=== PATIENT | male | born 2000 | race Caucasian/White ===

== ENCOUNTER 2023-10-18 23:09 | Emergency (ER) | payer BC, OTHER, SELFPAY ==
[2023-10-18 23:21] VITALS: BP 142/80; PULSE 102; RESP 16; TEMP 36.9; O2SAT 97; BMI 22.6
--- NOTE | 2023-10-18 23:58 | PC.NURSE ---
Pt main concern about being in ER is that he feels not well. Pt does not have a PCP, history of depression and anxiety. Pt states that he is not currently on any medications. Last time he tried Prozac and it did not help him. Pt lives locally but does not have a PCP or mental health provider at this time.
[2023-10-19 01:18] LABS: Appearance Urine UA CLEAR; Bilirubin Urine UA NEGATIVE (NEGATIVE); Color Urine UA YELLOW; Glucose Urine UA NEGATIVE (Negative); Ketones Urine UA NEGATIVE (NEGATIVE); Leukocyte Esterase Urine UA NEGATIVE (NEGATIVE); Nitrite Urine UA NEGATIVE (Negative); Occult Blood Urine UA TRACE-INTACT (Negative); Protein Urine UA NEGATIVE (Negative); Urobilinogen Urine UA 0.2 E.U./dL (0.2)
--- NOTE | 2023-10-19 01:19 | ED.WEAKNESS ---
HPI - Weakness General Chief complaint: Weakness Stated complaint: mental health, feels malnourished Time Seen by Provider: 10/19/23 00:56 Source: patient Mode of arrival: Ambulatory History of Present Illness HPI Narrative: Patient comes to the ED tonight because he is concerned he might be malnourished or anemic. He says he spends a lot of time indoors. 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 Not going to school currently. Lives in his parent's house. Because of depression anxiety says he has not eating much lately. He thinks he has had about a 4 lb weight loss in the past couple of months. He feels very fatigued and tired and is worried again about malnutrition. He specifically denies suicidal or homicidal ideation. He does not have a primary care doctor. He does not smoke cigarettes. He does use marijuana occasionally. He denies any other substance use. Patient History Social History Smoking Status: Never smoker Smoking Status: Never smoker Substance Use Type: marijuana Exam Narrative Exam Narrative: GENERAL: Alert, cooperative and in no distress. HEAD: Atraumatic. Normocephalic. EYES: Sclera are clear without icterus. Extraocular movements are full. ENT: No rhinorrhea. NECK: Supple. Full range of motion. CARDIOVASCULAR: Normal rate and rhythm without murmur gallop or rub. RESPIRATORY: Clear to auscultation. Breath sounds equal bilaterally. No wheezes, rales, or rhonchi. GASTROINTESTINAL: Abdomen soft, non-tender, nondistended. EXTREMITIES: No edema, full range of motion. No obvious trauma. NEURO: Nonfocal examination, normal speech, normal gait. SKIN: No rash or erythema of visible areas PSYCH: Normally oriented. Normal range of affect. Appropriate behavior Initial Vital Signs Initial Vital Signs: Vital Signs Temperature 98.4 F 10/18/23 23:21 Pulse Rate 102 H 10/18/23 23:21 Respiratory Rate 16 10/18/23 23:21 Blood Pressure 142/80 H 10/18/23 23:21 Pulse Oximetry 97 10/18/23 23:21 Oxygen Delivery Method Room Air 10/18/23 23:21 Course Orders Ordered: ED Orders 10/19/23 01:10 UA dip and micro [Urinalysis and Microscopic] Stat 10/19/23 01:30 CBC Auto Diff [Complete Blood Count AUTO DIFF] Stat CMP [Comprehensive Metabolic Panel] Stat TSH [Thyroid Stimulating Hormone] Stat Vital Signs Vital signs: Vital Signs - 8 hr 10/18/23 23:21 Temperature 98.4 F Pulse Rate 102 H Respiratory Rate 16 Blood Pressure 142/80 H Pulse Oximetry 97 Oxygen Delivery Method Room Air MDM - Weakness Lab Data 10/19/23 01:30 10/19/23 01:30 Labs: Lab Results 10/19/23 10/19/23 Range/Units 01:10 01:30 WBC 8.2 (4.5-11.0) X10^3/uL RBC 4.47 L (4.5-5.9) X10^6/uL Hgb 12.8 L (13.5-17.5) g/dL Hct 37.0 L (41-53) % MCV 82.9 (80-100) fL MCH 28.6 (26-34) PG MCHC 34.5 (30-36) % RDW 13.1 (11.6-14.8) % Plt Count 275 (150-400) X10^3/uL Neut % (Auto) 55.9 (50-75) % Lymph % (Auto) 34.1 (25-40) % [place] % (Auto) 7.9 (3-14) % Eos % (Auto) 1.7 L (2-4) % Baso % (Auto) 0.4 (0-2) % Neut # (Auto) 4600 (3027-4706) /uL Lymph # (Auto) 2800 (4142-3123) /uL [place] # (Auto) 600 (0-900) /uL Eos # (Auto) 100 (0-450) /uL Baso # (Auto) 0 (0-100) /uL Sodium 137 (137-145) mmol/L Potassium 3.7 (3.4-5.1) mmol/L Chloride 104 (98-107) mmol/L Carbon Dioxide 29 (22-32) mmol/L BUN 21 H (9-20) mg/dL Creatinine 0.59 L (0.66-1.25) mg/dL Estimated GFR > 60 (>60) mL/min BUN/Creatinine Ratio 35.6 H (6-22) Glucose 96 (70-100) mg/dL Calcium 9.5 (8.4-10.2) mg/dL Total Bilirubin 0.5 (0.2-1.3) mg/dL AST 35 (17-59) IU/L ALT 28 (<50) IU/L Alkaline Phosphatase 87 (38-126) U/L Total Protein 7.4 (6.3-8.2) g/dL Albumin 4.3 (3.5-5.0) g/dL Globulin 3.1 (1.7-4.1) g/dL Albumin/Globulin Ratio 1.4 (1.0-2.8) TSH 2.20 (0.47-4.68) uIU/mL Urine Color Yellow Urine Appearance Clear Urine pH 7.0 (4.5-8.0) Ur Specific [place] 1.020 (1.000-1.035) Urine Protein Negative (Negative) Urine Glucose (UA) Negative (Negative) g/dL Urine Ketones Negative (NEGATIVE) Urine Occult Blood Trace-intact (Negative) Urine Nitrate Negative (Negative) Urine Bilirubin Negative (NEGATIVE) Urine Urobilinogen 0.2 (0.2) E.U./dL Ur Leukocyte Esterase Negative (NEGATIVE) Urine RBC 1-5/hpf (0-5/HPF) Urine WBC None seen (0-5/HPF) Ur Squamous Epith Cells 0-1 /hpf (0-5/HPF) Urine Bacteria None seen (None) Urine Mucus 1+ H (Negative) Ur Culture Indicated? Cult not indicated Vol Urine Centrifuged 10ml (spun) MDM Narrative Medical decision making narrative: Minimal anemia with a normal MCV. Some degree of dehydration identified. Thyroid is normal. I think this young man's problem is primarily 1 of anxiety and depression with secondary minor malnutrition from poor diet. I recommended to him a number of strategies included in the discharge instructions. Discharge Plan Departure Patient Disposition: Home Clinical Impression: Anemia, Depression Activity Restrictions/Additional Instructions: While you have a degree of mild anemia and also some degree of dehydration, I think the primary issue here is the depression and anxiety your suffering from. To treat this I recommend daily exercise which could be something as simple as a brisk 40 minute walk 5 or 6 days a week. I also recommend follow-up with the primary care provider. You may choose the 1 his name is listed here on this paperwork. General healthy diet is recommended. Fruits and vegetables and meats and healthy fats such as Olives and avocado are recommended as well. I discouraged the use of processed greens, sugars and sweeteners. Return to the ED if you ever have thoughts of suicide or self-harm. Referrals: Juan Pablo Irby ARNP [Primary Care Provider] - Leeann Clay MD [Physician] - Stand Alone Forms: Patient Portal/API
[2023-10-19 01:25] LABS: Bacteria Urine None Seen; Culture Indicated Urine Cult Not Indicated; Mucus Urine 1+ (Negative); RBC Urine 1-5/HPF (0-5/HPF); Squamous Epithelial Cell Urine 0-1 /HPF (0-5/HPF); Urine Volume 10mL (spun); WBC Urine None Seen (0-5/HPF)
[2023-10-19 01:38] LABS: Add Manual Diff / Slide Review NO; Basophils Absolute Auto 0 /uL (0-100); Basophils Percent Auto 0.4 % (0-2); Eosinophils Absolute Auto 100 /uL (0-450); Eosinophils Percent Auto 1.7 % (2-4); Hemoglobin 12.8 g/dL (13.5-17.5); Lymphocytes Absolute Auto 2800 /uL (1100-4500); Lymphocytes Percent Auto 34.1 % (25-40); Mean Corpuscular HGB Conc 34.5 % (30-36); Mean Corpuscular Hemoglobin 28.6 PG (26-34); Mean Corpuscular Volume 82.9 fL (80-100); Monocytes Absolute Auto 600 /uL (0-900); Monocytes Percent Auto 7.9 % (3-14); Neutrophils Absolute Auto 4600 /uL (1500-7000); Neutrophils Percent Auto 55.9 % (50-75); Platelet Count 275 X10^3/uL (150-400); Red Blood Cell Count 4.47 X10^6/uL (4.5-5.9); Red Cell Distribution Width 13.1 % (11.6-14.8); White Blood Cell Count 8.2 X10^3/uL (4.5-11.0)
[2023-10-19 01:51] LABS: Alanine Aminotransferase 28 IU/L (<50); Albumin 4.3 g/dL (3.5-5.0); Albumin Globulin Ratio 1.4 (1.0-2.8); Alkaline Phosphatase 87 U/L (38-126); Aspartate Aminotransferase 35 IU/L (17-59); BUN Creatinine Ratio 35.6 (6-22); Bilirubin Total 0.5 mg/dL (0.2-1.3); Blood Urea Nitrogen 21 mg/dL (9-20); Calcium 9.5 mg/dL (8.4-10.2); Carbon Dioxide 29 mmol/L (22-32); Chloride 104 mmol/L (98-107); Estimated Glomerular Filt Rate > 60 mL/min (>60); Globulin 3.1 g/dL (1.7-4.1); Glucose 96 mg/dL (70-100); HEMOLYSIS < 15 (0-50); Potassium 3.7 mmol/L (3.4-5.1); Sodium 137 mmol/L (137-145); Total Protein 7.4 g/dL (6.3-8.2)
[2023-10-19 02:56] VITALS: BP 131/73; PULSE 98; RESP 16; O2SAT 98
== END 2023-10-19 02:57 | disposition home or self-care (01) ==
PROVIDERS: Emergency Provider Family Medicine Addiction Medicine; PCP Registered Nurse
DX: D64.9 Anemia, unspecified (principal); F32.A Depression, unspecified
CPT/HCPCS: 36415; 80053; 81001; 84443; 85025; 99281; 99283